=== PATIENT | female | born 1970 | race African-American/Black ===

== ENCOUNTER → 2016-09-28 | Outpatient (CLI) | payer OTHER | LOC: OD 12:26 | PROVIDERS: ATTEND Obstetrics & Gynecology | DX: E87.6 Hypokalemia (principal); Z51.81 Encounter for therapeutic drug level monitoring | CPT/HCPCS: 36415; 84132 ==

== ENCOUNTER 2017-07-23 17:48 | Emergency (ER) | payer OTHER ==
[2017-07-23] MEDS ORDERED: POTASSIUM CHLORIDE 10 MEQ TABLET.SA PO ONE (18:39)
[2017-07-23] MEDS ORDERED: MAGNESIUM SULFATE/D5W 1 GM/100 ML RTUPB IV ONE (18:41)
--- NOTE | 2017-07-23 18:42 | ER Document Report ---
ED Medical Screen (RME) - General Mode of Arrival: Ambulatory Information source: Patient TRAVEL OUTSIDE OF THE [place] IN LAST 30 DAYS: No - HPI Patient complains to provider of: hypokalemia Onset: This morning Associated Symptoms: Other - see notes above <YAW MACIAS - Last Filed: 07/23/17 18:34> <BETHANIE PABLO - Last Filed: 07/25/17 10:57> - General Chief Complaint: Abnormal Lab Results Stated Complaint: ABNORMAL LABS Time Seen by Provider: 07/23/17 18:24 Notes: 46 year old female with history of hypertension (medicated with HCTZ) presents to the ED with hypokalemia following routine blood work performed by her primary care provider. Patient states that she has low potassium 'all the time' and is on 15 milliequivalent potassium supplements. Patient reports increased fatigue and tingling to the bilateral hands that started today. Patient denies cough, congestion, vomiting, or diarrhea. (YAW MACIAS) - Related Data Allergies/Adverse Reactions: No Known Allergies Allergy (Unverified 06/08/14 10:46) Past Medical History - General Information source: Patient - Social History Chew tobacco use (# tins/day): No Frequency of alcohol use: Occasional Drug Abuse: None - Past Medical History Cardiac Medical History: Reports: Hx Hypertension - metoprolol, cardizem, HCTZ Denies: Hx Coronary Artery Disease, Hx Heart Attack Pulmonary Medical History: Denies: Hx Asthma, Hx Bronchitis, Hx COPD, Hx Pneumonia Neurological Medical History: Reports: Hx Migraine. Denies: Hx Cerebrovascular Accident, Hx Seizures Renal/ Medical History: Denies: Hx Peritoneal Dialysis GI Medical History: Reports: Hx Gastroesophageal Reflux Disease Musculoskeltal Medical History: Denies Hx Arthritis - Immunizations Hx Diphtheria, Pertussis, Tetanus Vaccination: Yes <YAW MACIAS - Last Filed: 07/23/17 18:34> Review of Systems - Review of Systems Constitutional: See HPI, Malaise, Weakness EENT: No symptoms reported. denies: Nose congestion Cardiovascular: No symptoms reported Respiratory: No symptoms reported. denies: Cough Gastrointestinal: No symptoms reported. denies: Diarrhea, Vomiting Genitourinary: No symptoms reported Female Genitourinary: No symptoms reported Musculoskeletal: No symptoms reported Skin: No symptoms reported Hematologic/Lymphatic: No symptoms reported Neurological/Psychological: See HPI, Tingling - bilateral hands -: Yes All other systems reviewed and negative <YAW MACIAS - Last Filed: 07/23/17 18:34> Physical Exam - General General appearance: Alert In distress: None - HEENT Head: Normocephalic, Atraumatic Eyes: Normal Extraocular movements intact: Yes Pupils: PERRL - Respiratory Respiratory status: No respiratory distress Breath sounds: Normal - Cardiovascular Rhythm: Regular, Tachycardia - mild Heart sounds: Normal auscultation - Abdominal Inspection: Normal <YAW MACIAS - Last Filed: 07/23/17 18:34> - Vital signs Vitals: Resp 13 07/23/17 21:50 Course - Laboratory Result Diagrams: 07/23/17 19:20 07/23/17 21:20 <BETHANIE PABLO - Last Filed: 07/25/17 10:57> - Vital Signs Vital signs: Temp Pulse Resp BP Pulse Ox 90 18 96/64 L 98 07/24/17 00:47 07/24/17 00:47 07/24/17 00:47 07/24/17 00:42 - Laboratory Laboratory results interpreted by me: 07/23/17 07/23/17 19:20 21:20 Hct 35.3 L Potassium 2.7 L* Est GFR (Non-Af Amer) 58 L Magnesium 2.6 H Total Protein 8.6 H Doctor's Discharge <YAW MACIAS - Last Filed: 07/23/17 18:34> <BETHANIE PABLO Felicity - Last Filed: 07/25/17 10:57> - Discharge Clinical Impression: Hypokalemia Condition: Good Disposition: HOME, SELF-CARE Additional Instructions: Follow-up tomorrow as you are scheduled to with your primary care physician. Increase your potassium supplement to 3 times daily unless directed otherwise by your primary care physician. Please return if you feel you are worsening or for other concern. Referrals: ARTEMIO HOANG MD [Primary Care Provider] - Follow up as needed Scribe Documentation - Scribe Written by Cocoibe:: Deanna Messina, 07/23/2017 1843 acting as scribe for :: Donald <YAW MACIAS - Last Filed: 07/23/17 18:34>
[2017-07-23 19:52] LABS: ABSOLUTE BASOPHILS # (AUTO) 0.1 10^3/uL (0.0-0.2); ABSOLUTE EOSINOPHILS # (AUTO) 0.1 10^3/uL (0.0-0.6); ABSOLUTE LYMPHOCYTES (AUTO) 3.3 10^3/uL (0.5-4.7); ABSOLUTE MONOCYTES (AUTO) 0.4 10^3/uL (0.1-1.4); ABSOLUTE NEUT (AUTO) 4.9 10^3/uL (1.7-8.2); BASOPHILS % (AUTO) 0.6 % (0-2); EOSINOPHILS % (AUTO) 0.9 % (0-6); HEMATOCRIT 35.3 % (36.0-47.0); HEMOGLOBIN 12.1 g/dL (12.0-15.5); LYMPHOCYTES % (AUTO) 37.3 % (13-45); MEAN CORPUSCULAR HEMOGLOBIN 31.8 pg (27.0-33.4); MEAN CORPUSCULAR HGB CONC 34.2 g/dL (32.0-36.0); MEAN CORPUSCULAR VOLUME 93 fl (80-97); MONOCYTES % (AUTO) 4.9 % (3-13); PLATELET COUNT 366 10^3/uL (150-450); RED BLOOD COUNT 3.79 10^6/uL (3.72-5.28); RED CELL DISTRIBUTION WIDTH 13.7 % (11.5-14.0); SEGMENTED NEUTROPHILS % (AUTO) 56.3 % (42-78); TOTAL CELLS COUNTED % (AUTO) 100 %; WHITE BLOOD COUNT 8.7 10^3/uL (4.0-10.5)
[2017-07-23 21:42] LABS: ALANINE AMINOTRANSFERASE 31 U/L (9-52); ALKALINE PHOSPHATASE 97 U/L (38-126); ANION GAP 17 (5-19); ASPARTATE AMINO TRANSFERASE 19 U/L (14-36); BILIRUBIN,DIRECT 0.4 mg/dL (0.0-0.4); BILIRUBIN,TOTAL 0.5 mg/dL (0.2-1.3); BLOOD UREA NITROGEN 15 mg/dL (7-20); CALCIUM 9.5 mg/dL (8.4-10.2); CARBON DIOXIDE 25 mmol/L (22-30); CHLORIDE 103 mmol/L (98-107); GLUCOSE 106 mg/dL (75-110); MAGNESIUM 2.6 mg/dL (1.6-2.3); SODIUM 144.9 mmol/L (137-145); TOTAL PROTEIN 8.6 g/dL (6.3-8.2)
[2017-07-23 21:49] LABS: POTASSIUM 2.7 mmol/L (3.6-5.0)
--- NOTE | 2017-07-23 22:01 | ER Document Report ---
ED General - General Chief Complaint: Abnormal Lab Results Stated Complaint: ABNORMAL LABS Time Seen by Provider: 07/23/17 18:24 Mode of Arrival: Ambulatory TRAVEL OUTSIDE OF THE [place] IN LAST 30 DAYS: No - HPI Notes: 46 year old female with history of chronic back pain with degenerative disc disease, hypertension treated with Spironolactone/HCTZ, presents to the ED with hypokalemia (2.2) following routine blood work performed by her primary care provider yesterday. Patient states that she has low potassium 'all the time' and states the last time she had to be treated in the hospital was over a year ago. She reports that she is usually in the 2 range endeavors in the 3 range with her potassium. She states she has had workup but no nephrology follow-up and no cause has been found to this point. She is currently on 15 milliequivalent potassium supplements twice daily and after she was told to come to the emergency department, she took 2 pills then. She is already been seen in [facility] and received some oral supplementation. She does get some nausea with it. She has had some increased weakness overall and some mild paresthesias in her hands bilaterally. She has noted this over the last couple of days worse today. She is not currently having any vomiting, diarrhea. There is no chest pain or breathing difficulty. She has on no other medications that are potassium wasting she states. - Related Data Allergies/Adverse Reactions: No Known Allergies Allergy (Unverified 06/08/14 10:46) Past Medical History - General Information source: Patient - Social History Smoking Status: Never Smoker Chew tobacco use (# tins/day): No Frequency of alcohol use: Occasional Drug Abuse: None Family History: None Patient has suicidal ideation: No Patient has homicidal ideation: No - Past Medical History Cardiac Medical History: Reports: Hx Hypertension - metoprolol, cardizem, HCTZ Denies: Hx Coronary Artery Disease, Hx Heart Attack Pulmonary Medical History: Denies: Hx Asthma, Hx Bronchitis, Hx COPD, Hx Pneumonia Neurological Medical History: Reports: Hx Migraine. Denies: Hx Cerebrovascular Accident, Hx Seizures Renal/ Medical History: Denies: Hx Peritoneal Dialysis GI Medical History: Reports: Hx Gastroesophageal Reflux Disease Musculoskeltal Medical History: Denies Hx Arthritis - Immunizations Hx Diphtheria, Pertussis, Tetanus Vaccination: Yes Review of Systems - Review of Systems -: Yes All other systems reviewed and negative Physical Exam - Vital signs Vitals: Resp 13 07/23/17 21:50 Notes: See nurse's note - Notes Notes: GENERAL: VS as per nursing doc. Well-appearing, well-nourished and in no acute distress. HEAD: Atraumatic, normocephalic. EYES: Pupils equal round and reactive to light, extraocular movements intact, sclera anicteric, no conjunctival injection or discharge. ENT: Nares patent, oropharynx clear without exudates, moist mucous membranes. NECK: Normal range of motion, supple without lymphadenopathy. LUNGS: Breath sounds clear to auscultation bilaterally and equal. No wheezes rales or rhonchi. HEART: Regular rate and rhythm without murmurs. ABDOMEN: Soft, non-tender. EXTREMITIES: Normal range of motion, no edema. NEUROLOGICAL: Cranial nerves grossly intact. Normal speech. Normal sensory and motor exams. No gross cerebellar abnormalities. PSYCH: Normal mood, normal affect. SKIN: Warm, dry. Course - Re-evaluation Re-evalutation: 07/23/17 22:09 Patient has already had a significant increase in her potassium from 2.2. We will provide her with IV potassium 20 mEq as she does have some flattening and slurring of the ST segments. Her magnesium is normal. She will see her primary care physician tomorrow as scheduled and will get a recheck performed. She voices understanding of follow-up needs and warning signs to watch for.. - Vital Signs Vital signs: Temp Pulse Resp BP Pulse Ox 13 106/73 100 07/23/17 21:51 07/23/17 21:51 07/23/17 21:51 - Laboratory Result Diagrams: 07/23/17 19:20 07/23/17 21:20 Laboratory results interpreted by me: 07/23/17 07/23/17 19:20 21:20 Hct 35.3 L Potassium 2.7 L* Est GFR (Non-Af Amer) 58 L Magnesium 2.6 H Total Protein 8.6 H - EKG Interpretation by Nm EKG shows normal: Sinus rhythm - Rate 89, no clear ischemia though ST segments are somewhat flattened. No U waves are present. No clear evidence of ischemia. Discharge - Discharge Clinical Impression: Hypokalemia Condition: Good Disposition: HOME, SELF-CARE Additional Instructions: Follow-up tomorrow as you are scheduled to with your primary care physician. Increase your potassium supplement to 3 times daily unless directed otherwise by your primary care physician. Please return if you feel you are worsening or for other concern. Referrals: ARTEMIO HOANG MD [Primary Care Provider] - Follow up as needed
[2017-07-23] MEDS ORDERED: POTASSI CL 20 MEQ/50 ML RIDER 20 MEQ/50 ML RTUPB IV ONE (22:05)
[2017-07-24 00:47] VITALS: BP 96/64
--- NOTE | 2017-07-24 08:50 | EKG REPORT ---
SEVERITY:- BORDERLINE ECG - SINUS RHYTHM BORDERLINE PROLONGED QT INTERVAL : Confirmed by: Betty Berger MD 24-Jul-2017 08:49:48
== END 2017-07-24 00:48 | disposition home or self-care (01) ==
LOC: ER 17:48
DX: E87.6 Hypokalemia (principal); R53.1 Weakness; M54.9 Dorsalgia, unspecified; G89.29 Other chronic pain; R20.0 Anesthesia of skin; I10 Essential (primary) hypertension; Z79.899 Other long term (current) drug therapy
CPT/HCPCS: 93005; 99284; 96365; 96366; 36415; 83735; 85025; 80053; 93010; J3480